=== PATIENT | female | born 1990 | race Caucasian/White ===

== ENCOUNTER 2023-03-18 07:09 | Day surgery (SDC) | payer BC, MEDICAID ==
[2023-03-11 12:03] LABS: BASOPHILS # (AUTO) 0.1 X10'3 (0-0.2); BASOPHILS % (AUTO) 0.9 % (0-1); EOSINOPHILS # (AUTO) 0.1 X10'3 (0-0.9); EOSINOPHILS % (AUTO) 1.2 % (0-6); LYMPHOCYTES # (AUTO) 1.8 X10'3 (1.1-4.8); LYMPHOCYTES % (AUTO) 30.2 % (21-51); MEAN CORPUSCULAR HEMOGLOBIN 31.8 PG (27.0-31.0); MEAN CORPUSCULAR HGB CONC 34.4 g/dL (33.0-36.5); MEAN CORPUSCULAR VOLUME 92.4 FL (78-98); MONOCYTES # (AUTO) 0.4 X10'3 (0-0.9); MONOCYTES % (AUTO) 7.4 % (2-12); NEUTROPHILS # (AUTO) 3.6 X10'3 (1.8-7.7); NEUTROPHILS % (AUTO) 60.3 % (42-75); PRE OP HEMATOCRIT 40.6 % (35.0-45.0); PRE OP HEMOGLOBIN 13.9 g/dL (12.0-16.0); PRE OP PLATELET COUNT 249 X10'3 (140-440); RED BLOOD COUNT 4.39 X10'6 (4.20-5.60); RED CELL DISTRIBUTION WIDTH 12.8 % (11.5-14.5)
[2023-03-11 12:17] LABS: ALBUMIN 4.4 G/DL (3.4-5.0); ALBUMIN/GLOBULIN RATIO 1.2 (1.1-1.5); ALKALINE PHOSPHATASE 42 IU/L (46-116); BLOOD UREA NITROGEN 12 MG/DL (7-18); BUN/CREATININE RATIO 14.3 (10.0-20.0); CHLORIDE 104 MMOL/L (99-107); CREATININE 0.84 MG/DL (0.40-0.90); PRE OP ALT 23 U/L (30-65); PRE OP ANION GAP 10 (8-16); PRE OP AST 15 U/L (10-37); PRE OP BILIRUB, TOTAL 1.8 MG/DL (0.0-1.0); PRE OP GLUCOSE 91 MG/DL (70-104); PRE OP SODIUM 138 MMOL/L (135-145); TOTAL CARBON DIOXIDE 24.5 MMOL/L (24-32); eGFR 79 ML/MIN
[2023-03-11 12:20] LABS: HCG SERUM QL NEGATIVE
[~2023-03-18] VITALS: Ht 165.1 cm; Wt 54.2 kg
[2023-03-18] VITALS (7 sets, daily range): BP systolic 97–131; BP diastolic 55–91
[~2023-03-18 07:09] MED LIST: MIRENA IUD VG; famotidine 20mg tablet PO ONE; ringers solution, lacted 1,000 ML IV SCH
[2023-03-18] MEDS ORDERED: morphine 4 MG/ML inj SYRINge IV PRN (07:45)
[2023-03-18] MEDS ORDERED: ondansetron/PF 4mg/2ml inj IV PRN (07:45)
[2023-03-18] MEDS ORDERED: meperidine/PF 25mg/ml syringe IV PRN ×3 (07:45)
[2023-03-18] MEDS ORDERED: proCHLORperazine 10 MG/2 ml inj IV PRN (07:45)
[2023-03-18] MEDS ORDERED: morphine 2 MG/ML inj. syringe IV PRN (07:45)
[2023-03-18] MEDS ORDERED: ringers solution, lacted 1,000 ML IV SCH (07:45)
[2023-03-18 08:38] LABS: HCG SERUM QL NEGATIVE
[2023-03-18] MEDS ORDERED: BUPIVAcaine/PF 2.5 mg/ml (0.25%) 30ml vial ONE (09:34)
[2023-03-18] MEDS ORDERED: sevoflurane 250ml liquid IH ONE (09:41)
[2023-03-18] MEDS ORDERED: dexamethasone sod phosphate 10mg/ml inj ONE (09:41)
[2023-03-18] MEDS ORDERED: ondansetron/PF 4mg/2ml inj ONE (09:41)
[2023-03-18] MEDS ORDERED: fentaNYL/PF 50MCG/1 ML 2ML syringe ONE (09:43)
[2023-03-18] MEDS ORDERED: midazolam 1 mg/ML 2ml injection ONE (09:43)
[2023-03-18] MEDS ORDERED: propofol inj 20 ML IV ONE (09:44)
[2023-03-18] MEDS ORDERED: glycopyrrolate 0.2mg/ml inj ONE (10:24)
[2023-03-18] MEDS ORDERED: rocuronium 10mg/ml inj IV ONE (10:24)
[2023-03-18] MEDS ORDERED: neostigmine methylsulfate 1 MG/ML 10ml vial ONE (10:24)
[2023-03-18] MEDS ORDERED: BUPIVAcaine 0.5% inj/PF 30 ml vial IJ ONE (10:25)
[2023-03-18] MEDS ORDERED: ketorolac trometh. 30mg/ml inj. ONE (10:26)
--- NOTE | 2023-03-18 11:00 | NUR ---
Received from OR via [facility] IN STABLE CONDITION , accompanied by Anesthesiologist Michael RN report given by CLINICAL INFORMATICS STRATEGIST AND Anesthesiolgi. Addendum: 03/18/23 at 1107 by Azucena Becerril RN Amended: Links added.
--- NOTE | 2023-03-18 11:39 | NUR ---
PATIENT DISCHARGED FROM PACU IN STABLE CONDITION AFTER WRITTEN AND VERBAL DISCHARGE INSTRUCTIONS GIVEN. PATIENT GAVE VERBAL UNDERSTANDING OF INSTRUCTIONS GIVEN. PATIENT LEFT FACILITY VIA WHEELCHAIR WITH RN. Addendum: 03/18/23 at 1149 by Azucena Becerril RN Amended: Links added.
== END 2023-03-18 11:39 | disposition home or self-care (01) ==
LOC: PAS 07:09
PROVIDERS: ATTEND Obstetrics & Gynecology
DX: Z30.2 Encounter for sterilization (principal); Z79.899 Other long term (current) drug therapy; Z98.890 Other specified postprocedural states; Z72.89 Other problems related to lifestyle
CPT/HCPCS: 36415; 58670; 80053; 82948; 84703; 85025; J1100; J1885; J2250; J2405; J2704; J2710; J3010; J3490; J7030; J7120; S0020; Z7506; Z7512; A4618